=== PATIENT | male | born 1985 | race Caucasian/White ===

== ENCOUNTER → 2017-01-08 | Outpatient (CLI) | payer MEDICAID ==
[2017-01-08 10:34] LABS: CHLORIDE,CL 107 mmol/L (98-110); SODIUM,NA 141 mmol/L (136-146)
== END ==
LOC: MW.CHFP 09:02
PROVIDERS: ATTEND Physician Assistant
DX: Z00.00 Encounter for general adult medical examination without abnormal findings (principal); I10 Essential (primary) hypertension; N63 Unspecified lump in breast
CPT/HCPCS: 36415; 80053; 82670; 83002; 84146; 84402; 84403; 84443; 84702; 85025

== ENCOUNTER → 2017-01-18 | Outpatient (CLI) | payer MEDICAID ==
--- NOTE | 2017-01-18 15:23 | US ---
EXAMINATION: Right breast ultrasound HISTORY: Lump COMPARISON: None TECHNIQUE: Grayscale and color Doppler images obtained. FINDINGS: There is a slightly asymmetric and slightly hyperechoic region within the subareolar regio n. There is no defined mass or fluid collection. No abnormal color Doppler flow. IMPRESSION: Likely mild gynecomastia without an abnormal mass identified.
== END ==
LOC: MW.US 08:48
PROVIDERS: ATTEND Physician Assistant
DX: N63 Unspecified lump in breast (principal)
CPT/HCPCS: 76641-RT; 76641-RT-26

== ENCOUNTER 2019-09-10 09:14 | Emergency (ER) | payer BC, OTHER ==
[2019-09-10] MEDS ORDERED: Sodium Chloride 0.9% 1,000 ML IV ONE (09:31)
[2019-09-10] MEDS ORDERED: Ketorolac 30 MG/ML SDV IVPUSH ONE (09:31)
[2019-09-10] MEDS ORDERED: Sodium Chloride 0.9% 10 ML Syringe FLUSH PRN (09:31)
[2019-09-10] MEDS ORDERED: Sodium Chloride 0.9% 2.5 ML Syringe FLUSH PRN (09:31)
--- NOTE | 2019-09-10 09:32 | EDM.PDOC ---
ED HPI GENERAL MEDICAL PROBLEM - General Chief Complaint: General Stated Complaint: FLU SYMPTOMS Time Seen by Provider: 09/10/19 09:25 Source of Information: Reports: Patient History Limitations: Reports: No Limitations - History of Present Illness INITIAL COMMENTS - FREE TEXT/NARRATIVE: Patient is a 34-year-old male who is complaining of having fever with chills with night sweats for the past 4 days. Patient has been taking Tylenol and ibuprofen without relief. He is complaining of being achy all over and feels that he "has been hit by a truck". Denies being nauseous or having any vomiting or diarrhea. Patient significant other is also sick with similar symptoms but she is improving at this point. Patient has no headache or any cough is not feeling short of breath or having dyspnea. 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 [No Known Home Meds] 07/02/18 [History] Past Medical History HEENT History: Reports: Other (See Below) Other HEENT History: permanent upper bridge Cardiovascular History: Reports: None, Other (See Below) Musculoskeletal History: Reports: Fracture Psychiatric History: Reports: Anxiety - Infectious Disease History Infectious Disease History: Reports: None - Past Surgical History Head Surgeries/Procedures: Reports: None HEENT Surgical History: Reports: None Musculoskeletal Surgical History: Reports: Other (See Below) Other Musculoskeletal Surgeries/Procedures:: left arm surgery with plate and screws and left femur surgery x2, (removal of kaity in left femur) Social & Family History - Family History Family Medical History: Noncontributory - Tobacco Use Smoking Status *Q: Never Smoker - Caffeine Use Caffeine Use: Reports: None - Recreational Drug Use Recreational Drug Use: Yes Recreational Drug Type: Reports: Marijuana/Hashish Recreational Drug Use Frequency: Socially ED ROS GENERAL - Review of Systems Review Of Systems: See Below Constitutional: Reports: Fever, Chills, Malaise, Night Sweats Respiratory: Reports: No Symptoms Cardiovascular: Reports: No Symptoms GI/Abdominal: Reports: No Symptoms : Reports: No Symptoms Musculoskeletal: Reports: Back Pain, Muscle Pain Skin: Reports: No Symptoms Neurological: Reports: No Symptoms Psychiatric: Reports: No Symptoms ED EXAM, GENERAL - Physical Exam Exam: See Below Exam Limited By: No Limitations General Appearance: Alert, No Apparent Distress Nose: Normal Inspection Throat/Mouth: Normal Inspection Head: Atraumatic Neck: Normal Inspection Respiratory/Chest: No Respiratory Distress, Lungs Clear, Normal Breath Sounds Cardiovascular: No JVD GI/Abdominal: Normal Bowel Sounds Back Exam: Normal Inspection Extremities: Normal Inspection Neurological: Alert, Oriented, Normal Cognition Psychiatric: Normal Affect Skin Exam: Warm, Dry Course - Vital Signs Last Recorded V/S: Last Vital Signs Temp 36.4 C 09/10/19 09:19 Pulse 80 09/10/19 09:19 Resp 18 09/10/19 09:19 BP 130/79 09/10/19 09:19 Pulse Ox 95 09/10/19 09:19 - Orders/Labs/Meds Orders: Active Orders 24 hr Category Date Time Status Sodium Chloride 0.9% [Saline Flush] Med 09/10/19 09:31 Active 10 ml FLUSH ASDIRECTED PRN Sodium Chloride 0.9% [Saline Flush] Med 09/10/19 09:31 Active 2.5 ml FLUSH ASDIRECTED PRN Saline Lock Insert [OM.PC] Stat Oth 09/10/19 09:31 Ordered Medication Orders Sodium Chloride (Saline Flush) 10 ml FLUSH ASDIRECTED PRN PRN Reason: Keep Vein Open Last Admin: 09/10/19 09:49 Dose: 10 ml Sodium Chloride (Saline Flush) 2.5 ml FLUSH ASDIRECTED PRN PRN Reason: Keep Vein Open Last Admin: 09/10/19 09:50 Dose: 2.5 ml Labs: Laboratory Tests 09/10/19 09/10/19 Range/Units 09:40 09:40 WBC 4.99 (4.0-11.0) K/uL RBC 5.60 (4.50-5.90) M/uL Hgb 18.0 H (13.0-17.0) g/dL Hct 52.2 H (38.0-50.0) % MCV 93.2 (80.0-98.0) fL MCH 32.1 H (27.0-32.0) pg MCHC 34.5 (31.0-37.0) g/dL RDW Std Deviation 46.6 (28.0-62.0) fl RDW Coeff of Paige 14 (11.0-15.0) % Plt Count 217 (150-400) K/uL MPV 10.30 (7.40-12.00) fL Neut % (Auto) 63.6 (48.0-80.0) % Lymph % (Auto) 19.0 (16.0-40.0) % [place] % (Auto) 16.8 H (0.0-15.0) % Eos % (Auto) 0.2 (0.0-7.0) % Baso % (Auto) 0.4 (0.0-1.5) % Neut # (Auto) 3.2 (1.4-5.7) K/uL Lymph # (Auto) 1.0 (0.6-2.4) K/uL [place] # (Auto) 0.8 (0.0-0.8) K/uL Eos # (Auto) 0.0 (0.0-0.7) K/uL Baso # (Auto) 0.0 (0.0-0.1) K/uL Nucleated RBC % 0.0 /100WBC Nucleated RBCs # 0 K/uL Sodium 138 (136-148) mmol/L Potassium 4.7 (3.5-5.1) mmol/L Chloride 103 (98-107) mmol/L Carbon Dioxide 27.5 (21.0-32.0) mmol/L BUN 12 (7.0-18.0) mg/dL Creatinine 1.0 (0.8-1.3) mg/dL Est Cr Clr Drug Dosing 103.10 mL/min Estimated GFR (MDRD) > 60.0 ml/min Glucose 87 (74-106) mg/dL Calcium 8.9 (8.5-10.1) mg/dL Total Bilirubin 0.4 (0.2-1.0) mg/dL AST 48 H (15-37) IU/L ALT 36 (14-63) IU/L Alkaline Phosphatase 55 (46-116) U/L Total Protein 7.4 (6.4-8.2) g/dL Albumin 4.1 (3.4-5.0) g/dL Globulin 3.3 (2.6-4.0) g/dL Albumin/Globulin Ratio 1.2 (0.9-1.6) Meds: Medications Generic Name Dose Route Start Last Admin Trade Name Freq PRN Reason Stop Dose Admin Sodium Chloride 10 ml 09/10/19 09:31 09/10/19 09:49 Saline Flush FLUSH 10 ml ASDIRECTED PRN Administration Keep Vein Open Sodium Chloride 2.5 ml 09/10/19 09:31 09/10/19 09:50 Saline Flush FLUSH 2.5 ml ASDIRECTED PRN Administration Keep Vein Open Discontinued Medications Generic Name Dose Route Start Last Admin Trade Name Freq PRN Reason Stop Dose Admin Sodium Chloride 1,000 mls @ 999 mls/hr 09/10/19 09:31 09/10/19 09:46 Normal Saline IV 09/10/19 10:31 999 mls/hr BOLUS ONE Administration Ketorolac Tromethamine 30 mg 09/10/19 09:31 09/10/19 09:47 Toradol IVPUSH 09/10/19 09:32 30 mg ONETIME ONE Administration - Re-Assessments/Exams Free Text/Narrative Re-Assessment/Exam: 09/10/19 10:44 Patient's labs came back positive for influenza B. He is feeling much better after IV fluids and Toradol. I am discharging him home at this time will give him a prescription for some [place] and advising him to continue with increased fluids and Tylenol and ibuprofen with meals. Departure - Departure Time of Disposition: 10:44 Disposition: Home, Self-Care 01 Condition: Good Clinical Impression: Influenza - Discharge Information Instructions: Influenza, Adult, [id number] Referrals: Qiana Cazares AGENT TELEGRAPHER [Primary Care Provider] - Forms: ED Department Discharge Additional Instructions: The following information is given to patients seen in the emergency department who are being discharged to home. This information is to outline your options for follow-up care. We provide all patients seen in our emergency department with a follow-up referral. The need for follow-up, as well as the timing and circumstances, are variable depending upon the specifics of your emergency department visit. If you don't have a primary care physician on staff, we will provide you with a referral. We always advise you to contact your personal physician following an emergency department visit to inform them of the circumstance of the visit and for follow-up with them and/or the need for any referrals to a consulting specialist. The emergency department will also refer you to a specialist when appropriate. This referral assures that you have the opportunity for follow-up care with a specialist. All of these measure are taken in an effort to provide you with optimal care, which includes your follow-up. Under all circumstances we always encourage you to contact your private physician who remains a resource for coordinating your care. When calling for follow-up care, please make the office aware that this follow-up is from your recent emergency room visit. If for any reason you are refused follow-up, please contact the [facility] Emergency Department at and asked to speak to the emergency department charge nurse. Care Plan Goals: Increase rest and fluids. Tylenol and ibuprofen as needed. [place] if needed. Return to ER if worse. Follow-up with PCP if not improving. Sepsis Event Note - Evaluation Sepsis Screening Result: No Definite Risk - Focused Exam Vital Signs: Vital Signs Temp Pulse Resp BP Pulse Ox 09/10/19 09:19 36.4 C 80 18 130/79 95 Date Exam was Performed: 09/10/19 Time Exam was Performed: 10:40 - My Orders Last 24 Hours: My Active Orders 09/10/19 09:31 Sodium Chloride 0.9% [Saline Flush] 10 ml FLUSH ASDIRECTED PRN Sodium Chloride 0.9% [Saline Flush] 2.5 ml FLUSH ASDIRECTED PRN Saline Lock Insert [OM.PC] Stat - Assessment/Plan Last 24 Hours: My Active Orders 09/10/19 09:31 Sodium Chloride 0.9% [Saline Flush] 10 ml FLUSH ASDIRECTED PRN Sodium Chloride 0.9% [Saline Flush] 2.5 ml FLUSH ASDIRECTED PRN Saline Lock Insert [OM.PC] Stat
[2019-09-10 10:15] LABS: BLOOD UREA NITROGEN,BUN 12 mg/dL (7.0-18.0); CARBON DIOXIDE,CO2 27.5 mmol/L (21.0-32.0); CHLORIDE,CL 103 mmol/L (98-107); GLUCOSE RANDOM 87 mg/dL (74-106); POTASSIUM,K 4.7 mmol/L (3.5-5.1); SODIUM,NA 138 mmol/L (136-148)
[2019-09-10 10:57] VITALS: BP 133/76; PULSE 76
== END 2019-09-10 10:57 | disposition home or self-care (01) ==
LOC: MW.ED 09:14
DX: J11.1 Influenza due to unidentified influenza virus with other respiratory manifestations (principal)
CPT/HCPCS: 36415; 80053; 85025; 87804; 96361; 96374; 99283; J1885; J7030

== ENCOUNTER 2020-04-10 12:35 | Emergency (ER) | payer BC ==
[2020-04-10] MEDS ORDERED: Sodium Chloride 0.9% 10 ML Syringe FLUSH PRN (12:49)
[2020-04-10] MEDS ORDERED: Sodium Chloride 0.9% 2.5 ML Syringe FLUSH PRN (12:49)
[2020-04-10] MEDS ORDERED: Aspirin 81 MG Tab.Chew PO ONE (12:49)
--- NOTE | 2020-04-10 12:51 | EDM.PDOC ---
ED HPI GENERAL MEDICAL PROBLEM - General Chief Complaint: Chest Pain Stated Complaint: CHEST PAIN Time Seen by Provider: 04/10/20 12:47 Source of Information: Reports: Patient History Limitations: Reports: No Limitations - History of Present Illness INITIAL COMMENTS - FREE TEXT/NARRATIVE: 34-year-old male with past medical history of hyperlipidemia, hypertension presenting with chest pain. Patient reports intermittent substernal chest pain for the past 1 to 2 weeks, described as "sharp". This morning, the patient developed sharp chest pain again around 9 AM while he was getting ready to go to hinduism. Nothing makes it better or worse. The pain does not radiate. Denies any exertional chest discomfort or shortness of breath. 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 Denies any history of VTE, extremity swelling, hemoptysis, recent surgery or immobilization, history of malignancy. Took ibuprofen prior to arrival. chest pain Pain Score (Numeric/FACES): 5 - Related Data Allergies Allergy/AdvReac Type Severity Reaction Status Date / Time No Known Allergies Allergy Verified 04/10/20 12:48 Home Meds: Home Meds . [No Known Home Meds] 07/02/18 [History] Past Medical History HEENT History: Reports: Other (See Below) Other HEENT History: permanent upper bridge Cardiovascular History: Reports: None, High Cholesterol, Hypertension, Other (See Below) Musculoskeletal History: Reports: Fracture Psychiatric History: Reports: Anxiety - Infectious Disease History Infectious Disease History: Reports: None - Past Surgical History Head Surgeries/Procedures: Reports: None HEENT Surgical History: Reports: None Musculoskeletal Surgical History: Reports: Other (See Below) Other Musculoskeletal Surgeries/Procedures:: left arm surgery with plate and screws and left femur surgery x2, (removal of kaity in left femur) Social & Family History - Family History Family Medical History: Noncontributory - Tobacco Use Smoking Status *Q: Never Smoker - Caffeine Use Caffeine Use: Reports: Coffee - Recreational Drug Use Recreational Drug Use: Yes Recreational Drug Type: Reports: Marijuana/Hashish ED ROS GENERAL - Review of Systems Review Of Systems: See Below Constitutional: Denies: Fever, Chills HEENT: Reports: No Symptoms Respiratory: Denies: Shortness of Breath, Cough, Hemoptysis Cardiovascular: Reports: Chest Pain, Palpitations. Denies: Dyspnea on Exertion, Edema, Lightheadedness Endocrine: Reports: No Symptoms GI/Abdominal: Denies: Abdominal Pain, Nausea, Vomiting : Denies: Flank Pain Musculoskeletal: Denies: Back Pain Skin: Denies: Rash Neurological: Denies: Headache ED EXAM, GENERAL - Physical Exam Exam: See Below Free Text/Narrative:: Vital signs reviewed. Nursing notes reviewed. Constitutional: Awake, alert, non-distressed. Head: Normocephalic, atraumatic. Eyes: EOMI, conjunctiva normal, no discharge, no scleral icterus. Ears, Nose, Throat: External ears and nose normal, moist oral mucosa. Cardiovascular: 2+ radial pulse, capillary refill less than 2 seconds. RRR no MRG Pulmonary: normal work of breathing, no accessory muscle use. CTA BL Abdomen/GI: Soft, nontender, nondistended, no guarding or rigidity, no masses. Musculoskeletal: No deformities. Integumentary: Appropriate color for ethnicity, warm, dry, no pallor or jaundice, no rash. Neurologic: Alert, answering questions appropriately, normal speech, no facial droop, moving all extremities well. Psychiatric: Appropriate mood and affect, normal thought process. EKG INTERPRETATION EKG Interpretation Comments: 12-Lead ECG Interpretation Acquired: 12:36 PM Rhythm: Sinus rhythm Rate: 71 bpm [place]: Normal Intervals: Normal Ectopy: None Ischemic Changes: None apparent RV Strain: No obvious RV strain pattern. ST Segments/T-Waves: No notable changes Interpretation: Unremarkable Course - Vital Signs Text/Narrative:: Patient hemodynamically stable, afebrile, well-appearing, looks nontoxic. Differential diagnosis includes but is not limited to: ACS, pulmonary embolism, aortic dissection, acute systolic heart failure, pneumonia, pneumothorax, pericardial effusion, pleural effusion, pericarditis, endocarditis, esophageal rupture, GERD, drug-induced chest pain, chest wall pain, and many others. Initial twelve-lead EKG appears nonischemic. D-dimer negative, troponin negative. CBC shows erythrocytosis. Electrolytes and renal function are normal. LFTs normal, chest x-rays appear clear. Mediastinum not widened on x- rays. No evidence of acute systolic heart failure, no pulmonary infiltrates. No murmur on cardiac auscultation. Afebrile, nontoxic, low suspicion for endocarditis. No history of chest wall trauma. Given aspirin. We will plan for 3-hour repeat troponin. At 3:35 PM, I was informed by the patient's nurse that the patient wanted to leave the emergency department AGAINST MEDICAL ADVICE and had already departed before I had a chance to discuss his work-up with him. The patient was concerned about the length of stay. I had explained to him that he needed to wait to have a second troponin drawn between 3 and 4 PM, the patient was ex plicitly informed of this timetable by me and was initially agreeable to this however he suddenly decided that he wanted to leave and did not stay to discuss further treatment with me before his departure. Last Recorded V/S: Last Vital Signs Temp 35.8 C L 04/10/20 12:45 Pulse 80 04/10/20 13:38 Resp 18 04/10/20 13:38 BP 144/84 H 04/10/20 13:38 Pulse Ox 95 04/10/20 13:38 - Orders/Labs/Meds Orders: Active Orders 24 hr Category Date Time Status Cardiac Monitoring [RC] . DIRECTED Care 04/10/20 12:49 Active Pulse Oximetry [RC] ASDIRECTED Care 04/10/20 12:49 Active Saline Lock Insert [OM.PC] Stat Oth 04/10/20 12:50 Ordered Labs: Laboratory Tests 04/10/20 04/10/20 04/10/20 Range/Units 12:39 12:39 12:39 WBC 10.17 (4.0-11.0) K/uL RBC 5.97 H (4.50-5.90) M/uL Hgb 19.5 H (13.0-17.0) g/dL Hct 56.8 H (38.0-50.0) % MCV 95.1 (80.0-98.0) fL MCH 32.7 H (27.0-32.0) pg MCHC 34.3 (31.0-37.0) g/dL RDW Std Deviation 47.1 (28.0-62.0) fl RDW Coeff of Paige 14 (11.0-15.0) % Plt Count 297 (150-400) K/uL MPV 10.00 (7.40-12.00) fL Neut % (Auto) 67.3 (48.0-80.0) % Lymph % (Auto) 21.7 (16.0-40.0) % [place] % (Auto) 9.9 (0.0-15.0) % Eos % (Auto) 0.8 (0.0-7.0) % Baso % (Auto) 0.3 (0.0-1.5) % Neut # (Auto) 6.8 H (1.4-5.7) K/uL Lymph # (Auto) 2.2 (0.6-2.4) K/uL [place] # (Auto) 1.0 H (0.0-0.8) K/uL Eos # (Auto) 0.1 (0.0-0.7) K/uL Baso # (Auto) 0.0 (0.0-0.1) K/uL Nucleated RBC % 0.0 /100WBC Nucleated RBCs # 0 K/uL D-Dimer, Quantitative 0.35 (0.0-0.50) mg/L FEU Sodium 136 (136-148) mmol/L Potassium 3.5 (3.5-5.1) mmol/L Chloride 99 (98-107) mmol/L Carbon Dioxide 28.1 (21.0-32.0) mmol/L BUN 10 (7.0-18.0) mg/dL Creatinine 1.2 (0.8-1.3) mg/dL Est Cr Clr Drug Dosing 85.92 mL/min Estimated GFR (MDRD) > 60.0 ml/min Glucose 89 (74-106) mg/dL Calcium 8.9 (8.5-10.1) mg/dL Total Bilirubin 0.7 (0.2-1.0) mg/dL AST 24 (15-37) IU/L ALT 30 (14-63) IU/L Alkaline Phosphatase 60 (46-116) U/L Troponin I < 0.050 (0.000-0.056) ng/mL Total Protein 8.5 H (6.4-8.2) g/dL Albumin 4.8 (3.4-5.0) g/dL Globulin 3.7 (2.6-4.0) g/dL Albumin/Globulin Ratio 1.3 (0.9-1.6) Meds: Medications Discontinued Medications Generic Name Dose Route Start Last Admin Trade Name Freq PRN Reason Stop Dose Admin Aspirin 324 mg 04/10/20 12:49 04/10/20 13:37 Aspirin PO 04/10/20 12:50 324 mg ONETIME ONE Administration Sodium Chloride 2.5 ml 04/10/20 12:49 Saline Flush FLUSH ASDIRECTED PRN Keep Vein Open Sodium Chloride 10 ml 04/10/20 12:49 Saline Flush FLUSH ASDIRECTED PRN Keep Vein Open Departure - Departure Time of Disposition: 15:39 Disposition: Against Medical Advice 07 Condition: Good Clinical Impression: Left against medical advice Referrals: PCP,None [Primary Care Provider] - Forms: ED Department Discharge Sepsis Event Note (ED) - Evaluation Sepsis Screening Result: No Definite Risk - Focused Exam Vital Signs: Vital Signs Temp Pulse Resp BP Pulse Ox 04/10/20 13:38 80 18 144/84 H 95 04/10/20 12:45 35.8 C L 59 L 22 H 177/98 H 90 L - My Orders Last 24 Hours: My Active Orders 04/10/20 12:49 Cardiac Monitoring [RC] . DIRECTED Pulse Oximetry [RC] ASDIRECTED 04/10/20 12:50 Saline Lock Insert [OM.PC] Stat - Assessment/Plan Last 24 Hours: My Active Orders 04/10/20 12:49 Cardiac Monitoring [RC] . DIRECTED Pulse Oximetry [RC] ASDIRECTED 04/10/20 12:50 Saline Lock Insert [OM.PC] Stat
[2020-04-10 13:19] LABS: BLOOD UREA NITROGEN,BUN 10 mg/dL (7.0-18.0); CARBON DIOXIDE,CO2 28.1 mmol/L (21.0-32.0); CHLORIDE,CL 99 mmol/L (98-107); GLUCOSE RANDOM 89 mg/dL (74-106); POTASSIUM,K 3.5 mmol/L (3.5-5.1); SODIUM,NA 136 mmol/L (136-148)
[2020-04-10 13:38] VITALS: BP 144/84; PULSE 80
--- NOTE | 2020-04-10 14:05 | CR ---
HISTORY: Chest pain. TECHNIQUE: Two views of the chest. COMPARISON: No prior. FINDINGS: There is no acute lung infiltrate or pulmonary edema. No pneumothorax or pleural effusion. Cardiac size and pulmonary vasculature within normal limits. No acute bony abnormality. IMPRESSION: No acute disease. Dictated by Daniel Joya MD @ 04/10/2020 2:04:13 PM Dictated by: Daniel Joya MD @ 04/10/2020 14:04:19 (Electronically Signed)
== END 2020-04-10 15:36 | disposition left against medical advice (07) ==
LOC: MW.ED 12:35
DX: R07.2 Precordial pain (principal); I10 Essential (primary) hypertension
CPT/HCPCS: 36415; 71046; 80053; 84484; 85025; 85379; 93005; 99285; A9270; 99282

== ENCOUNTER 2020-09-03 07:23 | Emergency (ER) | payer BC ==
--- NOTE | 2020-09-03 07:29 | EDM.PDOC ---
ED HPI GENERAL MEDICAL PROBLEM - General Stated Complaint: RT HAND HURTS Time Seen by Provider: 09/03/20 07:30 - History of Present Illness INITIAL COMMENTS - FREE TEXT/NARRATIVE: History of present illness: [] Like the patient got angry and felt like he was so angry that he needed to blow off some steam. He punched a wall. He is embarrassed because he has not done anything like this since he was a teenager. This morning when he woke up his hand was swollen. He is a dominant right-handed individual in good health he does not smoke and is not treated for diabetes or other medical problems. He has pain and swelling in the right hand. Its worse with touching it or moving it. He does not have any distal sensory motor deficit in the range of motion and alignment of the digits in the right upper extremity are normal. No systemic signs of infection This patient was seen and evaluated during the 2019 SARS-CoV-2 novel coronavirus pandemic period. Community viral transmission is ongoing at time of this encounter and the emergency department is operating under pandemic response procedures. Review of systems: As per history of present illness and below otherwise all systems reviewed and negative. Past medical history: As per history of present illness and as reviewed below otherwise noncontributory. Surgical history: As per history of present illness and as reviewed below otherwise noncontributory. Social history: No reported history of drug or alcohol abuse. Family history: As per history of present illness and as reviewed below otherwise noncontributory. Physical exam: Constitutional - well developed, well-nourished and in no acute distress HEENT - normocephalic, no evidence of trauma - external nose and mouth normal - no mass in neck and no JVD - mucosae moist EYES - full EOM, PERRL, no icterus - no evidence of inflammation, injection, or drainage Respiratory - no respiratory distress, equal bilateral expansion Vascular-capillary refill and warmth and color are intact in the distal right upper extremity digits GI - abdomen soft without distension or organomegaly - normal bowel sounds - no guard or rebound Musculoskeletal tenderness and swelling especially in the dorsum of the right hand around the distal half of the metacarpals #4 and 5 with no obvious deformity of the joints or alignment of the digits. Range of motion is normal in the digits with normal alignment. No gross deformity of long bones or joints - no tenderness, swelling or edema Neurologic -sensation is intact in the distal right upper extremity digits alert and oriented times four - CN II-XII grossly intact - motor sensory and coordination symmetrically normal Psychiatric - appropriate mood and affect with normal thought content Hematologic - No petechiae or purpura - mucosa appropriate color and sclera not pale - normal nail bed color and refill Integument - no rash or evidence of trauma - normal turgor Diagnostics: [] Therapeutics: [] Impression: [] Plan: [] Definitive disposition and diagnosis as appropriate pending reevaluation and review of above. right hand Pain Score (Numeric/FACES): 7 - Related Data Allergies Allergy/AdvReac Type Severity Reaction Status Date / Time No Known Allergies Allergy Verified 09/03/20 07:36 Home Meds: Home Meds Acetaminophen/Codeine [Tylenol with Codeine No.3 300MG/30MG] 1 - 2 tab PO Q4H PRN #12 tab 09/03/20 [Rx] Past Medical History HEENT History: Reports: Other (See Below) Other HEENT History: permanent upper bridge Cardiovascular History: Reports: None, High Cholesterol, Hypertension, Other (See Below) Musculoskeletal History: Reports: Fracture Psychiatric History: Reports: Anxiety - Infectious Disease History Infectious Disease History: Reports: None - Past Surgical History Head Surgeries/Procedures: Reports: None HEENT Surgical History: Reports: None Musculoskeletal Surgical History: Reports: Other (See Below) Other Musculoskeletal Surgeries/Procedures:: left arm surgery with plate and screws and left femur surgery x2, (removal of kaity in left femur) Social & Family History - Family History Family Medical History: No Pertinent Family History - Caffeine Use Caffeine Use: Reports: Coffee ED ROS GENERAL - Review of Systems Review Of Systems: Comprehensive ROS is negative, except as noted in HPI. ED EXAM, GENERAL - Physical Exam Exam: See Below Free Text/Narrative:: My physical exam is in the HPI Course - Vital Signs Text/Narrative:: X-ray reveals an essentially nondisplaced fracture of the proximal fourth me tacarpal. Immobilization will be necessary to prevent further pain soft tissue damage and displacement. A ulnar gutter splint will be applied and the fingers put into a position of function. Hand follow-up will be arranged. Patient will be told to ice elevate and use NSAIDs for pain. Neurovascular checks to be done by the patient. Splint application the neurovascular structures integrity is verified in the capillary refill sensation and color are all intact and in their original condition. Discussed with Dr. Scherer the orthopedist and he agreed to follow-up. Last Recorded V/S: Last Vital Signs Temp 36.2 C 09/03/20 07:33 Pulse 78 09/03/20 07:33 Resp 16 09/03/20 07:33 BP 144/94 H 09/03/20 07:33 Pulse Ox 97 09/03/20 07:33 - Orders/Labs/Meds Orders: Active Orders 24 hr Category Date Time Status Hand Comp Min 3V Rt [CR] Stat Exams 09/03/20 07:30 Taken DME for Discharge [COMM] Stat Oth 09/03/20 08:01 Ordered Meds: Medications Discontinued Medications Generic Name Dose Route Start Last Admin Trade Name Molly PRN Reason Stop Dose Admin Ibuprofen 800 mg 09/03/20 08:01 09/03/20 08:08 Motrin PO 09/03/20 08:02 800 mg ONETIME ONE Administration Departure - Departure Time of Disposition: 08:12 Disposition: Home, Self-Care 01 Condition: Good Clinical Impression: Fracture of metacarpal bone - Discharge Information Instructions: How to Use Cold Therapy, [id number], Cast or Splint Care, Adult, [id number], Boxer's Fracture Referrals: Orthopedic Clinic [Outside] Forms: ED Department Discharge Additional Instructions: Rest, ice, elevate, watch for color change, sensory decrease, anterior in the fingers distal or downstream to the splint. [facility] [address], [address] [place] [address] The following information is given to patients seen in the emergency department who are being discharged to home. This information is to outline your options for follow-up care. We provide all patients seen in our emergency department with a follow-up referral. The need for follow-up, as well as the timing and circumstances, are variable depending upon the specifics of your emergency department visit. If you don't have a primary care physician on staff, we will provide you with a referral. We always advise you to contact your personal physician following an emergency department visit to inform them of the circumstance of the visit and for follow-up with them and/or the need for any referrals to a consulting specialist. The emergency department will also refer you to a specialist when appropriate. This referral assures that you have the opportunity for follow-up care with a specialist. All of these measure are taken in an effort to provide you with optimal care, which includes your follow-up. Under all circumstances we always encourage you to contact your private physician who remains a resource for coordinating your care. When calling for follow-up care, please make the office aware that this follow-up is from your recent emergency room visit. If for any reason you are refused follow-up, please contact the [facility] at and asked to speak to the emergency department charge nurse. Sepsis Event Note (ED) - Focused Exam Vital Signs: Vital Signs Temp Pulse Resp BP Pulse Ox 09/03/20 07:33 36.2 C 78 16 144/94 H 97 - My Orders Last 24 Hours: My Active Orders 09/03/20 07:30 Hand Comp Min 3V Rt [CR] Stat 09/03/20 08:01 DME for Discharge [COMM] Stat - Assessment/Plan Last 24 Hours: My Active Orders 09/03/20 07:30 Hand Comp Min 3V Rt [CR] Stat 09/03/20 08:01 DME for Discharge [COMM] Stat
[2020-09-03] MEDS ORDERED: Ibuprofen 800 MG Tab PO ONE (08:01)
[2020-09-03] MEDS ORDERED: Acetaminophen/Codeine 300-30 MG Tab PO ONE (08:09)
[2020-09-03 08:12] VITALS: BP 141/94; PULSE 71
--- NOTE | 2020-09-03 08:21 | CR ---
HISTORY: Right hand pain. Trauma. TECHNIQUE: Three views of the right hand. COMPARISON: No prior. FINDINGS: There is a subtle acute minimally displaced fracture involving the base of the 4th metacarpal bone. This is most apparent on the oblique film. CT would better evaluate the fracture given the overlap of adjacent osseous structures. Subtle nondisplaced fracture of the 5th metacarpal base is not excluded. No dislocation appreciated. Ossicle distal to the ulnar styloid appears corticated and chronic. Mild triscaphe joint degenerative changes. IMPRESSION: 1. Acute minimally displaced fracture of the base of the 4th metacarpal bone. 2. Subtle nondisplaced fracture of the 5th metacarpal base is not excluded. 3. CT would allow better characterization of the 4th metacarpal bone fracture and assessment of alignment of the 4th and 5th CMC articulations. 4. Ossicle along the distal aspect of the ulnar styloid appears corticated and chronic. Dictated by Daniel Joya MD @ 09/03/2020 8:19:52 AM Dictated by: Daniel Joya MD @ 09/03/2020 08:19:54 (Electronically Signed)
== END 2020-09-03 08:24 | disposition home or self-care (01) ==
LOC: MW.ED 07:23
DX: S62.314A Displaced fracture of base of fourth metacarpal bone, right hand, initial encounter for closed fracture (principal); S62.346A Nondisplaced fracture of base of fifth metacarpal bone, right hand, initial encounter for closed fracture; I10 Essential (primary) hypertension; W22.8XXA Striking against or struck by other objects, initial encounter
CPT/HCPCS: 29125; 73130; 99283; A9270; 99282

== ENCOUNTER 2022-03-24 08:42 | Emergency (ER) | payer BC, OTHER ==
[2022-03-24] MEDS ORDERED: Acetaminophen/HYDROcodone 325-10 MG Tab PO ONE (08:51)
[2022-03-24 08:54] VITALS: BP 151/103; PULSE 85
[2022-03-24] MEDS ORDERED: Ketorolac 30 MG/ML SDV IM ONE (11:58)
== END 2022-03-24 13:10 | disposition home or self-care (01) ==
LOC: MW.ED 08:42
DX: S20.211A Contusion of right front wall of thorax, initial encounter (principal); I10 Essential (primary) hypertension; Z79.899 Other long term (current) drug therapy; V29.9XXA Motorcycle rider (driver) (passenger) injured in unspecified traffic accident, initial encounter; Y92.410 Unspecified street and highway as the place of occurrence of the external cause
CPT/HCPCS: 71046; 96372; 99284; A9270; J1885

== ENCOUNTER 2022-07-22 13:08 | Emergency (ER) | payer BC ==
[2022-07-22] MEDS ORDERED: Lactated Ringers 1,000 ML IV STA (13:43)
[2022-07-22 13:57] LABS: POTASSIUM,K 3.7 mmol/L (3.5-5.1)
[2022-07-22 15:18] VITALS: BP 134/85; PULSE 92
== END 2022-07-22 15:18 | disposition home or self-care (01) ==
LOC: MW.ED 13:08
DX: R07.89 Other chest pain (principal); R06.02 Shortness of breath; E78.00 Pure hypercholesterolemia, unspecified; I10 Essential (primary) hypertension; Z79.899 Other long term (current) drug therapy; Z20.822 Contact with and (suspected) exposure to COVID-19
CPT/HCPCS: 36415; 71045; 80053; 80307; 83735; 84443; 84484; 85025; 85379; 87635; 93005; 99291; J7120; U0002

== ENCOUNTER 2023-01-14 11:29 | Emergency (ER) | payer OTHER, BC ==
[2023-01-14] MEDS ORDERED: Acetaminophen/HYDROcodone 325-10 MG Tab PO ONE (12:31)
[2023-01-14 13:14] VITALS: BP 148/86; PULSE 95
== END 2023-01-14 13:27 | disposition home or self-care (01) ==
LOC: MW.ED 11:29
DX: S82.141A Displaced bicondylar fracture of right tibia, initial encounter for closed fracture (principal); I10 Essential (primary) hypertension; Z79.899 Other long term (current) drug therapy; V86.56XA Driver of dirt bike or motor/cross bike injured in nontraffic accident, initial encounter; Y92.410 Unspecified street and highway as the place of occurrence of the external cause
CPT/HCPCS: 73562; 99283; A9270; 99284

== ENCOUNTER 2023-04-10 06:29 | Day surgery (SDC) | payer BC ==
[~2023-04-10 06:29] MED LIST: Lactated Ringers 1,000 ML IV SCH
[2023-04-10] MEDS ORDERED: Scopolamine 1.5 MG Transdermal Patch TOP ONE (06:30)
[2023-04-10] MEDS ORDERED: fentaNYL 100 MCG/2 ML SDV ONE (07:30)
[2023-04-10] MEDS ORDERED: propofoL 50 ML ONE (07:30)
[2023-04-10] MEDS ORDERED: Ropivacaine 0.5% 5 MG/ML 30 ML SDV ONE (07:33)
[2023-04-10] MEDS ORDERED: Morphine 2 MG/ML SYRINGE IVPUSH PRN (07:50)
[2023-04-10] MEDS ORDERED: HYDROmorphone 1 MG/ML Syringe IVPUSH PRN (07:50)
[2023-04-10] MEDS ORDERED: Naloxone 0.4 MG/ML SDV IVPUSH PRN (07:50)
[2023-04-10] MEDS ORDERED: Ondansetron 4 MG/2 ML SDV IVPUSH PRN (07:50)
[2023-04-10] MEDS ORDERED: droPERidol 5 MG/2 ML SDV IVPUSH PRN (07:50)
[2023-04-10] MEDS ORDERED: Albuterol 0.083% 2.5 MG/3 ML Neb Soln NEB PRN (07:50)
[2023-04-10] MEDS ORDERED: fentaNYL 50 MCG/ML SDV IVPUSH PRN (07:50)
[2023-04-10] MEDS ORDERED: Metoclopramide 10 MG/2 ML SDV IVPUSH PRN (07:50)
[2023-04-10] MEDS ORDERED: ceFAZolin 2 GM in Sodium Chloride 0.9% 50 ML IV ONE (08:00)
[2023-04-10] MEDS ORDERED: Ketamine 500 mg/10 ML MDV ONE (08:04)
[2023-04-10] MEDS ORDERED: Midazolam 1 MG/ML 2 ML SDV ONE ×2 (08:05→11:06)
[2023-04-10] MEDS ORDERED: Lidocaine 2% 11 ML Jelly Filled Syringe ONE (08:19)
[2023-04-10] MEDS ORDERED: Propofol 200 MG/20 ML SDV ONE ×2 (09:16→09:48)
[2023-04-10 13:42] VITALS: BP 141/87; PULSE 66
== END 2023-04-10 14:00 | disposition home or self-care (01) ==
LOC: MW.SDS 06:29
PROVIDERS: ATTEND Orthopaedic Surgery
DX: S83.511A Sprain of anterior cruciate ligament of right knee, initial encounter (principal); M24.19 Other articular cartilage disorders, other specified site; M23.41 Loose body in knee, right knee; I10 Essential (primary) hypertension; E66.9 Obesity, unspecified; Z79.899 Other long term (current) drug therapy; Z68.31 Body mass index [BMI] 31.0-31.9, adult
CPT/HCPCS: 29888; 64447; A9270; C1713; J0131; J2250; J2704; J2795; J3010; J3490; J7120; 01400

== ENCOUNTER 2023-04-10 18:01 | Emergency (ER) | payer BC ==
[2023-04-10] MEDS ORDERED: HYDROmorphone 1 MG/ML Syringe IM ONE (18:37)
[2023-04-10] MEDS ORDERED: Ondansetron 4 MG Tab.DIS PO ONE (19:25)
[2023-04-10 19:45] VITALS: BP 107/65; PULSE 73
== END 2023-04-10 19:45 | disposition home or self-care (01) ==
LOC: MW.ED 18:01
DX: G89.18 Other acute postprocedural pain (principal); M25.561 Pain in right knee; I10 Essential (primary) hypertension; E66.9 Obesity, unspecified; Z68.29 Body mass index [BMI] 29.0-29.9, adult; Z91.030 Bee allergy status; Z79.899 Other long term (current) drug therapy; Z98.890 Other specified postprocedural states
CPT/HCPCS: 96372; 99283; A9270; J1170; 99284

== ENCOUNTER 2023-04-17 09:00 | Emergency (ER) | payer BC ==
[2023-04-17] MEDS ORDERED: ceFAZolin 1 GM Vial IM ONE (10:24)
[2023-04-17] MEDS ORDERED: Doxycycline 100 MG Cap PO ONE (10:25)
[2023-04-17] MEDS ORDERED: Ibuprofen 800 MG Tab PO ONE (11:18)
[2023-04-17 11:39] VITALS: BP 167/96; PULSE 73
== END 2023-04-17 11:38 | disposition home or self-care (01) ==
LOC: MW.ED 09:00
DX: L03.115 Cellulitis of right lower limb (principal); I10 Essential (primary) hypertension; E66.9 Obesity, unspecified; Z68.29 Body mass index [BMI] 29.0-29.9, adult; Z91.030 Bee allergy status; Z79.899 Other long term (current) drug therapy
CPT/HCPCS: 93971; 96372; 99283; A9270; J0690